=== PATIENT | female | born 1970 | race Caucasian/White ===

== ENCOUNTER 2020-10-10 10:10 | Emergency (ER) | payer OTHER ==
[~2020-10-10] VITALS: Ht 162.6 cm; Wt 81.6 kg
[~2020-10-10 10:10] MED LIST: IRON PO; LEXAPRO10 MG PO; MAGNESIUM PO; MISOPROSTOL100 MCG PO; MULTIVITAMIN PO; OMEGA PO; POTASSIUM PO; WELLBUTRIN100 MG PO
[2020-10-10] MEDS ORDERED: HYDROCODONE/APAP 5MG-325MG TAB PO ONE (10:30)
[2020-10-10] MEDS ORDERED: HYDROCODON-ACE1 EA11 PO (13:03)
[2020-10-10 13:38] VITALS: BP 124/67
== END 2020-10-10 13:39 | disposition home or self-care (01) ==
LOC: ER 10:15
DX: M25.561 Pain in right knee (principal); Y93.39 Activity, other involving climbing, rappelling and jumping off
CPT/HCPCS: 99283